=== PATIENT | male | born 1965 ===

== ENCOUNTER 2024-02-21 11:46 | Day surgery (SDC) | payer OTHER ==
[2024-02-18 09:51] LABS: HEMATOCRIT 46.1 % (39.0-48.0); HEMOGLOBIN 15.9 g/dL (13-16.00); MEAN CORPUSCULAR HEMOGLOBIN 31.3 pg (27.00-32.0); MEAN CORPUSCULAR HGB CONC 34.4 g/dl (32.0-36.0); PLATELET COUNT 267 K/uL (150-450); RED BLOOD COUNT 5.07 M/uL (4.00-6.00); RED CELL DISTRIBUTION WIDTH 12.7 % (11.5-14.5)
[2024-02-18 10:10] LABS: PH,URINE 6.5 (5.0-8.0); URINE APPEARANCE Cloudy; URINE BILIRRUBIN Negative (NEGATIVE); URINE BLOOD Small; URINE COLOR Yellow; URINE GLUCOSE Negative (NEGATIVE); URINE KETONE Negative (NEGATIVE); URINE LEUKOCYTE Negative; URINE NITRATE Negative; URINE PROTEIN Negative (NEGATIVE)
[2024-02-18 10:17] LABS: URINE RBC 38.6 uL (0.0-20.8)
[2024-02-18 10:33] LABS: INR 1.05; PARTIAL THROMBOPLASTIN TIME 31.4 SECONDS (22.0-34.0); PROTHROMBIN TIME 11.4 SECONDS (9.0-11.5)
[2024-02-18 10:36] LABS: CALCIUM 9.8 mg/dL (8.5-10.1); CREATININE SERUM 1.01 mg/dL (0.70-1.30); GFR 75.61; POTASSIUM 4.1 mEq/L (3.5-5.1)
[2024-02-18 10:42] LABS: URINE BACTERIA 3.7 uL (0.0-1933)
[2024-02-21] MEDS ORDERED: CEFAZOLIN SODIUM 1,000 MG VIAL ONE (13:44)
[2024-02-21] MEDS ORDERED: LIDOCAINE HCL 1% 10ML VIAL ONE (16:29)
[2024-02-21] MEDS ORDERED: LIDOCAINE HCL 1% 20ML VIAL IJ ONE (16:29)
[2024-02-21] MEDS ORDERED: TYLENOL ARTHRI650 MG PO (18:03)
[2024-02-21] MEDS ORDERED: KETO10TA2 PO (18:03)
== END 2024-02-21 19:00 | disposition home or self-care (01) ==
LOC: CIR.AMB 11:46
PROVIDERS: ATTEND Surgery
DX: D21.6 Benign neoplasm of connective and other soft tissue of trunk, unspecified (principal); D49.2 Neoplasm of unspecified behavior of bone, soft tissue, and skin